=== PATIENT | female | born 1945 | race Caucasian/White ===

== ENCOUNTER → 2017-04-06 | Day surgery (SDC) | payer MEDICARE, OTHER ==
[~2017-04-06] VITALS: Ht 175.3 cm; Wt 72.4 kg
[~2017-04-06] MED LIST: ACET-822; ACETAMINOPHEN 1000 MG/100 ML VIAL IV ONE; ADVI200T PO; AMLO2.5T PO; BACITRACIN TOP OINT 15 GM TUBE ONE; BACITRACIN TOP OINT 15 GM TUBE TOPICAL ONE; BUPIVACAINE HCL PF 0.5% 30 ML VIAL INFIL ONE; BUPIVACAINE HCL PF 0.5% 30 ML VIAL ONE; CALC500T21 PO; CHLORHEXIDINE GLUCONATE 2 % 1 PACK (2 CLOTHS) TOPICAL PRN; CLAR10CA3; DIAZ5 PO; DO NOT ADM ANY ANTICOAGULANT DRUGS PRN; ESTR1TAB PO; FENO50TA PO; FLUO-1 PO; FLUO10TA PO; FLUT1SPR9; GABA1TAB; GABA300C3 PO; ICAPTAB; INSULIN HUMAN REGULAR 1,000 UNITS/10 ML VIAL SQ PRN; LACTATED RINGER'S 1000 ML INJ 500 ML IV SCH; LACTATED RINGER'S 1000 ML IV PRN; LIDO1PAD; LIDOCAINE HCL 2% 50 ML VIAL INFIL ONE; LIDOCAINE HCL 2% 50 ML VIAL ONE; METOPROLOL TARTRATE 25 MG TAB PO PRN; NEXI40CA PO; OMEP20TA PO; ONDANSETRON HCL 4 MG/2 ML VIAL IV PUSH ONE; POVIDONE IODINE 5% (ANTISEPSIS KIT) 4 APPLICATIONS EACH NARE PRN; PREG75 PO; PROPOFOL 200 MG/20 ML AMP IV ONE; SIMV10TA PO; SODIUM CHLORID 0.9% 500 ML IV PRN; ULTR50TA PO; VITA20002 PO; VITA250L PO; ZOLP10TA3 PO; [UNRECOGNIZED DRUG - CODE] PO; ceFAZolin 2 GM PREMIX 50 ML IV SCH; ePHEDrine/NS 25 MG/5 ML SYR IV ONE
[2017-04-06 11:19] VITALS: BP 137/81; PULSE 67; RESP 20; TEMP 98.5; O2SAT 96
--- NOTE | 2017-04-06 12:15 | EKG ---
Date Performed: 04/06/2017 Time Performed: 11:08:10 PTAGE: 71 years EKG: Sinus rhythm NONSPECIFIC T-WAVE ABNORMALITY BORDERLINE ECG NO PREVIOUS TRACING DOCTOR: Adi Jones Interpretating Date/Time 04/06/2017 12:12:46
--- NOTE | 2017-04-06 14:01 | PD.OP ---
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
[2017-04-06 15:16] VITALS: BP 142/80; PULSE 84; RESP 16; TEMP 98.5; O2SAT 95
--- NOTE | 2017-04-08 14:21 | MP ---
cc: RUBA MAMHOOD MD DATE OF SURGERY: 04/06/2017 PREOPERATIVE DIAGNOSIS Painful neuroma right thumb/CMC joint region. POSTOPERATIVE DIAGNOSES Adhesion sensory branches right hand/thumb. PROCEDURE Neurolysis sensory branches radial nerve right hand/thumb. SURGEON Dr. Mahmood. ANESTHESIA General. ESTIMATED BLOOD LOSS Minimal. TOURNIQUET TIME 73 minutes at 250 mmHg. IMPLANTS USED AxoGen nerve protector 40 mm x 3.5 mm. CONDITION The patient was recovered and sent to Recovery in stable condition. INDICATION The patient is a 71-year-old female status post trapezial excision tendon right thumb CMC joint several years ago, who presented with complaints of a painful mass over the dorsal aspect of the thumb CMC joint for the past several weeks. She had no history of injury. On examination she had a tender mass over the dorsal aspect of the thumb CMC joint which was positive for Tinel's sign, radiating pain to the distal aspect of the thumb. The patient was initially managed with oral steroids and splinting. She had symptomatic relief following local lidocaine injection. Because of the persistent symptoms she was consented for excision of neuroma, possible neurolysis and possible nerve repair sensory branch radial nerve right hand/thumb. The patient was explained the risks and benefits of the procedure. DETAILS OF PROCEDURE The patient was brought to the operating room. Under general anesthesia the right upper extremity was thoroughly prepped and draped. The incision site was marked in a transverse fashion incorporating the previous scar measuring about 3 cm. The limb was exsanguinated using an Esmarch tourniquet. The tourniquet was inflated to 250 mmHg. Soft tissue dissection was carried out. Attention was initially directed proximally. The sensory branch of the radial nerve was identified proximally. This was then traced distally across the previous surgical site. The sensory branch of the radial nerve was found to be adherent to the scar. Two branches were found adherent to the scar tissue, one on the volar aspect. The nerve was visualized. The nerve on the dorsal radial aspect was identified proximally it was traced across the previous surgical incision site. The branch was adherent to the scar tissue. Neurolysis of the nerve was carried out. No evidence of neuroma was noted. The nerve was . After neurolysis part of the nerve was protected with an AxoGen nerve protector 40 x 3.5 mm. It was trimmed and placed around the neurolysed sensory nerve and sewn in place with multiple 8-0 nylon stitches. The skin was then approximated using 5-0 nylon in a horizontal mattress interrupted fashion. Xeroform and bacitracin dressing was applied. 5 cc of local anesthesia containing a mixture of 2% lidocaine and 0.5% Marcaine was injected across the incision site. A bulky hand dressing was applied and held in place by bias hand wrap. The tourniquet was deflated. Total tourniquet time was 71 minutes. The patient had good distal circulation after release of the tourniquet. She was recovered and sent to Recovery in stable condition. She will follow up with me in 2-3 days' time for a dressing change. Ruba Mahmood MD SE/REEMA /2:09 PM /1:50 PM
== END | disposition home or self-care (01) ==
LOC: HSDC 10:04
PROVIDERS: ATTEND Surgery Surgery of the Hand
DX: D36.12 Benign neoplasm of peripheral nerves and autonomic nervous system, upper limb, including shoulder (principal); L90.5 Scar conditions and fibrosis of skin; F41.9 Anxiety disorder, unspecified; M19.90 Unspecified osteoarthritis, unspecified site; Z79.899 Other long term (current) drug therapy
CPT/HCPCS: 01810; 64708; 93005; C9353; J0131; J0690; J2405; J3010; J7120